=== PATIENT | male | born 1950 | race Caucasian/White ===

== ENCOUNTER 2016-05-27 11:35 | Emergency (ER) | payer OTHER ==
[~2016-05-27] VITALS: Ht 167.6 cm; Wt 92.5 kg
[2016-05-27 11:38] VITALS: BP 179/98; TEMP 36.5; Ht 167.6 cm; Wt 92.5 kg
[2016-05-27] MEDS ORDERED: PROPARACAINE HCL 0.5% OP SOLN 15 ML BTL ONE (11:40)
[2016-05-27] MEDS ORDERED: PROPARACAINE HCL 0.5% OP SOLN 15 ML BTL OP STA (11:43)
[2016-05-27] MEDS ORDERED: HYDR-5688 PO (12:06)
[2016-05-27] MEDS ORDERED: CIPR0.3S OP (12:06)
[2016-05-27] MEDS ORDERED: GLUC500C4 PO (12:12)
[2016-05-27] MEDS ORDERED: REDCAP2 PO (12:12)
[2016-05-27] MEDS ORDERED: ZINC50TA3 PEG (12:12)
[2016-05-27] MEDS ORDERED: OMEG10007 PO (12:12)
[2016-05-27] MEDS ORDERED: PRLSR20 PO (12:12)
[2016-05-27 12:24] VITALS: PULSE 78; O2SAT 98
--- NOTE | 2016-05-27 18:15 | EMERGENCY ROOM VISIT NOTE ---
ED Visit Note First contact with patient: 11:43 Chief Complaint: Left eye pain. History of Present Illness: Mr. Flores is a 65-year-old white male who ambulates into the ED accompanied by his complaining of left eye pain. Patient reports he awoke from sleep this morning at approximately 6:30, proximally 5 hours ago and reported he had a foreign body sensation in the left eye; he thought it could be an eyelash. He pulled his upper eyelid off the eye and then started having worsening pain. Since that time he reports he has been having constant pain. He can only describe it as a foreign body sensation. He rates his discomfort 10/10. The pain is nonradiating. He has not identified any aggravating or alleviating factors related to the pain. He has not taken any medications for pain prior to arrival at the hospital. Associated with his pain he reports she's had tearing, mild blurry vision but no overall decrease in vision and light sensitivity denies fevers, chills, sweats, skin eruptions, skin color changes, headaches, recent eye trauma, previous significant eye trauma/diseases, decreased overall vision, headache, upper respiratory tract symptoms, nausea/vomiting.. Review of Systems: As noted above in history of present illness. 8 body systems were reviewed and found to be negative as noted above. Past Medical History: GERD, status post cholecystectomy and Lasix surgery. Current Medications: Prilosec, glucosamine, zinc, red yeast rice extract, omega- 3 fish oil. Allergies to Medications: Patient denies. Social History: Patient is currently retired; he lives with his and feels safe in his home environment; he denies tobacco and alcohol use. Physical Examination: Vital Signs: Date Time Temp Pulse Resp B/P Pulse Ox O2 Delivery O2 Flow Rate FiO2 05/27/16 12:24 78 18 98 Room Air 05/27/16 11:38 36.5 75 18 179/98 98 Room Air GENERAL: 65-year-old male in no acute distress; patient received Alcaine prior to my evaluation, nontoxic-appearing, afebrile and hemodynamically stable. NEUROLOGICAL: Awake, alert and oriented to person, place and time. Answering questions appropriately and following commands. Normal gait. Good hand eye coordination. No focal motor or sensory deficits. SKIN: Warm, dry and pink. No soft tissue eruptions or trauma noted. HEENT: Atraumatic and normocephalic. No orbital erythema or edema. No obvious signs of trauma around the eyes. PERRLA. EOMI without nystagmus. No foreign bodies noted under the eyelids are embedded in the cornea. The anterior chamber is clear. Sclera mildly injected and conjunctiva pink with this small amount of clear tears drainage. On slit lamp examination with staining patient has a small corneal abrasion at the 10 to 1 o'clock position. I do not see any other uptakes of the dye but on slit lamp examination there does appear to be a slightly irregularity to the surface of the cornea. Visual acuity: Right 20/20 without correction, Left 20/30 without correction. ED Course: Patient is assessed as noted above. Alcaine was used to anesthetize the eyes for examination. Patient was educated about tonight's findings and instructed on his treatment plan; he verbalizes understanding and agreement with this plan. Clinical Impression: Left corneal abrasion. Disposition: Patient discharged home in stable condition accompanied by his ; prior to departure he was reassessed and subjectively reported he was feeling better. Plan: Patient was prescribed Ciloxan ophthalmic solution for antibiotic coverage and encouraged to use 2 drops every 4 hours while awake for 5 days per Patient was placed on a sliding pain medication scale of ibuprofen, acetaminophen and [place]; patient was educated on appropriate precautions with narcotic use. 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 Patient was encouraged return the ED sooner for uncontrolled pain, worsening vision changes, headaches, vomiting, fevers or any new/concerning symptoms.
== END 2016-05-27 12:24 | disposition home or self-care (01) ==
LOC: C.EDB 11:39 → C.EDD 12:24
DX: S05.02XA Injury of conjunctiva and corneal abrasion without foreign body, left eye, initial encounter (principal); X58.XXXA Exposure to other specified factors, initial encounter; K21.9 Gastro-esophageal reflux disease without esophagitis; Z79.899 Other long term (current) drug therapy